=== PATIENT | male | born 1980 | race Caucasian/White ===

== ENCOUNTER 2021-02-21 08:40 | Emergency (ER) | payer OTHER ==
[2021-02-21 09:36] LABS: BASOPHIL 0.3 % (0-2); HCT 51.2 % (42.0-52.0); HGB 17.1 g/dl (13.2-18.0); LYMPHOCYTE 27.2 % (15-48); MCH 29.9 pg (25.0-31.0); MCHC 33.4 g/dL (32.0-36.0); MCV 89.7 fL (78.0-100.0); MONOCYTE 9.1 % (0-12); MPV 9.6 fL (6.0-9.5); NEUTROPHIL 60.5 % (41-80); NRBC 0; PLT 269 K/uL (150-400); RBC 5.71 M/uL (4.70-6.00); RDW 13.1 % (11.5-14.0); WBC 7.6 K/uL (4.0-10.5)
[2021-02-21 09:50] LABS: BUN/CREAT RATIO (CALC) 16.1 RATIO; CREATININE 0.87 mg/dL (0.67-1.17); POTASSIUM 4.1 mmol/L (3.5-5.1)
== END 2021-02-21 13:39 | disposition home or self-care (01) ==
LOC: FER 08:40
PROVIDERS: Emergency Medicine
DX: U07.1 COVID-19 (principal); J12.82 Pneumonia due to coronavirus disease 2019; G43.909 Migraine, unspecified, not intractable, without status migrainosus
CPT/HCPCS: 36415; 71045; 80048; 84484; 85025; 93005; J0780; J1200; J1885; J2405; J7030